=== PATIENT | male | born 1965 | race Caucasian/White ===

== ENCOUNTER 2017-05-04 12:12 | Emergency (ER) | payer MEDICARE ==
[2017-05-04] MEDS ORDERED: NORMAL SALINE 1,000 ML IV ONE (13:32)
--- NOTE | 2017-05-04 13:39 | ERNOTE ---
Integumentary HPI - General Presenting Symptoms: abscess Time Seen by Provider: 05/04/17 13:17 Source: patient Exam Limitations: no limitations - Immun/Allergies/Home Medications Immunizations: IMMUNIZATION HX Immunizations Up to Date No History of Influenza Vaccine No Hx Pneumococcal Vaccination No Allergies/Adverse Reactions: Allergies Allergy/AdvReac Type Severity Reaction Status Date / Time No Known Allergies Allergy Unverified 05/04/17 12:34 Home Medications: HOME MEDICATIONS Ibuprofen 200 mg PO DAILY 05/04/17 [Last Taken Unknown] L.acidoph,Paracasei, B.lactis [Probiotic] 1 each PO DAILY 05/04/17 [Last Taken Unknown] Morphine Sulfate [Ms Contin] 15 mg PO BID 05/04/17 [Last Taken Unknown] Omeprazole 20 mg PO DAILY 05/04/17 [Last Taken Unknown] Sulfamethoxazole/Trimethoprim [Bactrim Ds] 1 tab PO BID #20 tab 05/04/17 [Last Taken Unknown] - History of Present Illness Narrative: Patient had fever and chills for most of last week without any real source. He had mild discomfort in the scar on his right side of chest, but no erythema and swelling. He saw his doctor three days ago, had blood work done (not sure about results). Over the last couple of days he started to have swelling and pain on his right chest, went to the ER in [place] today and was transferred here to have an I&D done by a surgeon. ( Dr Covington called at 11:10. 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 Date (Duration): 05/01/17 Review of Systems - Review of Systems Constitutional: Present: fever, chills ENT: Absent: nose congestion, sore throat Respiratory: Absent: shortness of breath, cough Cardiology: Present: See HPI, chest pain Gastrointestinal/Abdominal: Absent: nausea, vomiting, diarrhea, abdominal pain Genitourinary: Present: no symptoms reported Musculoskeletal: Present: See HPI Neurological: Absent: weakness, numbness, tingling - Patient's Past Medical History Patient History - Medical: Chronic Pain - mainly phantom pain in right leg, Osteoarthritis - left knee, had steroid injection last week Patient History - Cardiac/Respiratory: No pertinent hx Patient History - Cancer: Other - sarcoma Patient History - Surgical Procedures: Cancer Surgery, Other Patient History - Other: None - Social History Living Situations: home Abuse History: No History of abuse Psych History: No pertinent hx Smoking Status: Current every day smoker Alcohol Use: occasionally Drug Use: none - Immunizations Immunizations Up to Date: No Hx Pneumococcal Vaccination: No History of Influenza Vaccine: No Physical Exam - Physical Exam General Appearance: Present: wd/wn, alert, no apparent distress Respiratory: Present: no respiratory distress, normal breath sounds, no accessory muscle use, lungs clear, other - right lower chest wall erythema and swelling with area of fluctuance Cardiovascular/Chest: Present: regular rate, rhythm, no murmur Gastrointestinal/Abdominal: Present: normal bowel sounds, nontender, nondistended, soft Extremity Exam: Present: normal except - - right leg absent Neurological Exam: Present: alert, oriented, normal mood/affect Skin Exam: Present: normal color, warm/dry ED Progress - Results and Orders Patient's Lab Results:: I have reviewed the patient's lab results. - Vital Signs Patient's Vital Signs:: I have reviewed the patient's vital signs. Vital Signs: Vital Signs 05/04/17 12:24 Temperature 36.6 C Pulse Rate 62 Respiratory 16 Rate Blood Pressure 117/62 O2 Sat by Pulse 98 Oximetry - CT/Ultrasound CT/Ultrasound Narrative: CT chest and abdomen: chest wall abscess without extension into pleural or abdomen - Progress/Reassessment Chief Complaint: Abscess Progress Note-Subjective: 05/04/17 13:[address] Giron, explained findings, elevated WBC three days ago , consider CT to evaluate extension of abscess, agreed with plan to get CT patient denies need for pain meds 05/04/17 15:[address] Blum (radiology) and Dr Giron 05/04/17 16:05 abscess I&D'd by Dr Giron Departure Clinical Impression: Abscess or cellulitis of chest wall - Departure Disposition: Home self-care Condition: Good Instructions: Abscess, Crit-is-Cfds Additional Instructions: follow up with either Dr Frank or Dr Vasquez Referrals: Sukhjinder Frank MD [Primary Care Provider] - Demetrius Vasquez MD [Associate] - Prescriptions: Sulfamethoxazole/Trimethoprim [Bactrim Ds] 1 tab PO BID #20 tab
[2017-05-04 13:55] LABS: Hematocrit 40.4 % (42.0-52.0); Hemoglobin 13.7 gm/dL (13.5-18.0); Mean Cell Volume 86.7 fl (78-100); Mean Corpuscular Hemoglobin 29.4 pg (27-31); Mean Corpuscular Hgb Conc 33.9 g/dl (32-36); Neutrophil # 8.7 K/mm3 (1.3-6.0); Neutrophil % 75.2 % (42-75.0); Platelet Count 192 K/mm3 (150-450); Red Blood Count 4.66 M/mm3 (4.7-6.0); Red Cell Distribution Width 15.7 % (11.5-14.0); White Blood Count 11.6 K/mm3 (4.0-10.5)
[2017-05-04 14:14] LABS: Albumin * 2.5 gm/dl (3.4-5.0); Anion Gap 10.3 mmol/L (6.8-13.8); BUN/Creatinine Ratio 10.8 (9.0-21.6); Bilirubin, Total 2.2 mg/dL (0.0-1.1); Ca. Corrected For Albumin 9.6 mg/dL (8.4-10.2); Calcium * 8.7 mg/dL (7.9-10.9); Carbon Dioxide 26.9 mmol/L (24-32.6); Potassium 3.2 mmol/L (3.4-4.6); Total Protein 7.2 gm/dL (6.2-8.2)
[2017-05-04] MEDS ORDERED: LIDOCAINE HCL 20 ML VIAL ONE (15:47)
[2017-05-04 16:30] VITALS: BP 119/62
--- NOTE | 2017-05-04 17:25 | CONS ---
HPI - General Source: patient, RN/MD, old records Exam Limitations: no limitations - History of Present Illness Initial Comments: Asked to see this gentlemen. He was sent up from [place] for a surgical consult. The treating physician felt this was a complex enough case that an abscess on his RUQ should be attended by a surgeon. I spoke with Dr. Kenney and she and I have reviewed his chest and abdominal CT with the radiologist. He has a 3.5 cm abscess that does not communication with the chest or abdominal cavities. 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 He has been having fevers and chills and has an elevated WBC. Severity: severe Associated Symptoms: fever/chills Allergies/Adverse Reactions: Allergies No Known Allergies Allergy (Unverified 05/04/17 12:34) Home Medications: Home Medications Medication Instructions Recorded Last Taken Ibuprofen 200 mg PO DAILY 05/04/17 Unknown L.acidoph,Paracasei, B.lactis 1 each PO DAILY 05/04/17 Unknown [Probiotic] Morphine Sulfate [Ms Contin] 15 mg PO BID 05/04/17 Unknown Omeprazole 20 mg PO DAILY 05/04/17 Unknown - Patient's Past Medical History Patient History - Medical: No pertinent hx Patient History - Cardiac/Respiratory: No pertinent hx Patient History - Cancer: Other - Ewings sarcoma Patient History - Surgical Procedures: Other Patient History - Other: None - Social History Living Situations: home Abuse History: No History of abuse Psych History: No pertinent hx Smoking Status: Current every day smoker Alcohol Use: occasionally Drug Use: none - Immunizations Immunizations Up to Date: No Hx Pneumococcal Vaccination: No History of Influenza Vaccine: No Review of Systems - Review of Systems Generalized/Overall Review: Present: Chills, Fever Misc: All systems neg except as marked Physical Examination - Exam Vital Signs: Vital Signs - Last Taken Temp 36.6 C 05/04/17 16:10 Pulse 68 05/04/17 16:10 Resp 16 05/04/17 16:10 BP 119/62 05/04/17 16:10 Pulse Ox 98 05/04/17 16:10 O2 Oxygen Delivery Method Room Air Constitutional: Present: Alert, Oriented x3, Cooperative, Mild distress ENT Exam: Present: normal ENT inspection Eye Exam: bilateral eye: normal inspection Neck: Present: normal inspection Cardiovascular/Chest: Present: other - Right costal margin has significant deformity and radiation changes, old skin graft, heaped up appearance due to muscle flap in addition to cellulitis. There is a point of fluctuance approximately 1 cm in diameter. Extremity: Present: other - RLE surgically absent, hip disarticulation. - Results and Findings: Narrative: A: Abscess of the abdominal/chest wall P: I recommended I&D. After obtaining informed verbal consent the area of maximal fluctuance was prepped with betadine and anesthetized with 1% xylocaine plain. A cruciate incision was performed and minimal purulence was obtained. Sterile gauze was applied. He tolerated the procedure well. Case d/w Dr. Kenney who will provide him oral antibiotics. He is to follow-up with me next week. Lab/Microbiology results last 24 hrs: Abnormal/Pending Laboratory Last 24 HRS 05/04/17 05/04/17 13:52 13:52 WBC 11.6 H RBC 4.66 L Hct 40.4 L RDW 15.7 H Immature Gran # (Auto) 0.05 H Neutrophils % 75.2 H Lymphocytes % 11.7 L Monocytes % 10.8 H Neutrophils # 8.7 H Lymphocytes # 1.4 L Monocytes # 1.3 H Potassium 3.2 L Est GFR (Non-Af Amer) 137 H Total Bilirubin 2.2 H AST 69 H ALT 72 H Albumin 2.5 L - Assessments/Findings (1) Abscess or cellulitis of chest wall Problem: Acute
== END 2017-05-04 16:10 | disposition home or self-care (01) ==
LOC: ER 12:12
PROC: 0H95XZZ Drainage of Chest Skin, External Approach (ICD-10-PCS; principal; 2017-05-04)
DX: L02.213 Cutaneous abscess of chest wall (principal); Z85.831 Personal history of malignant neoplasm of soft tissue; F17.200 Nicotine dependence, unspecified, uncomplicated; M17.12 Unilateral primary osteoarthritis, left knee; G89.29 Other chronic pain